=== PATIENT | female | born 1995 | race Caucasian/White ===

== ENCOUNTER 2021-02-13 17:07 | Emergency (ER) | payer OTHER ==
[~2021-02-13] VITALS: Ht 160 cm; Wt 94.0 kg
[2021-02-13] MEDS ORDERED: KETOROLAC 15 MG/ML VIAL. IVP ONE (18:45)
--- NOTE | 2021-02-13 18:45 | PHYS DOC ---
Past History Past Medical History: Anemia (MORGAN CARRERA APRN) Past Surgical History: No Surgical History (MORGAN CARRERA APRN) Alcohol Use: Occasionally (MORGAN CARRERA APRN) General Adult EDM: Chief Complaint: VAGINAL BLEEDING HPI: HPI: Patient is a 26-year-old female presents with vaginal bleeding and clotting during her period. Patient states that she has been on her period for 3 days and today she started having clotting and abdominal pain. Patient states that she was going through 1 pad every couple hours at home. Patient was also reporting some dizziness earlier today. Patient denies any dizziness, shortness of breath, chest pain at this time. Patient has a history of anemia. (MORGAN CARRERA APRN) Review of Systems: Review of Systems: Constitutional: Denies fever or chills Eyes: Denies change in visual acuity HENT: Denies nasal congestion or sore throat Respiratory: Denies cough or shortness of breath Cardiovascular: Denies chest pain or edema GI: Reports lower abdominal pain, denies nausea, vomiting, bloody stools or diarrhea /Vaginal: Denies dysuria . Reports vaginal bleeding and clots Musculoskeletal: Denies back pain or joint pain Integument: Denies rash Neurologic: Denies headache, focal weakness or sensory changes Endocrine: Denies polyuria or polydipsia Lymphatic: Denies swollen glands Psychiatric: Denies depression or anxiety (MORGAN CARRERA APRN) Current Medications: Current Meds: Current Medications Medications (Trade) Dose Ordered Sig/Tyree Start Time Stop Time Status Last Admin Dose Admin Ketorolac Tromethamine (Toradol 15mg Vial) 15 mg 1X ONCE 02/13/21 18:45 02/13/21 18:46 UNV (MORGAN CARRERA APRN) Physical Exam: PE: Constitutional: Well developed, well nourished, no acute distress, non-toxic appearance. [] HENT: Normocephalic, atraumatic, bilateral external ears normal, oropharynx moist, no oral exudates, nose normal. [] Eyes: PERRLA, EOMI, conjunctiva normal, no discharge. [] Neck: Normal range of motion, no tenderness, supple, no stridor. [] Cardiovascular:Heart rate regular rhythm, no murmur [] Lungs & Thorax: Bilateral breath sounds clear to auscultation [] Abdomen: Bowel sounds normal, soft, lower abdomen tenderness Skin: Warm, dry, no erythema, no rash. [] Back: No tenderness, no CVA tenderness. [] Extremities: No tenderness, no cyanosis, no clubbing, ROM intact, no edema. [] Neurologic: Alert and oriented X 3, normal motor function, normal sensory function Psychologic: Affect normal, judgement normal, mood normal. [] (MORGAN CARRERA APRN) Current Patient Data: Vital Signs: Vital Signs Date Time Temp Pulse Resp B/P (MAP) Pulse Ox O2 Delivery O2 Flow Rate FiO2 02/13/21 17:21 98.3 86 16 135/79 (97) 97 Room Air (MORGAN CARRERA APRN) EKG: EKG: [] (MORGAN CARRERA APRN) Radiology/Procedures: Radiology/Procedures: []Study: CT abdomen/pelvis without intravenous contrast Indication: Left lower quadrant pain. Comparison: None. Technique: Helical CT imaging performed of the abdomen and pelvis without the use of intravenous contrast. Sagittal and coronal reformats were obtained. One or more of the following individualized dose reduction techniques were utilized for this examination: 1. Automated exposure control 2. Adjustment of the mA and/or kV according to patient size 3. Use of iterative reconstruction technique. Findings: Inherently limited evaluation without intravenous contrast. Chest: Cystic structure at the anterior/lower aspect of the mediastinum to the right of midline with simple internal density. This measures 3.1 x 1.7 x 1.8 cm. Liver: No focal parenchymal abnormality. Gallbladder/Biliary Tree: Unremarkable. Pancreas: Unremarkable. Spleen: Normal in size. Adrenal Glands: No adrenal gland mass. Kidneys/Ureters/Bladder: Symmetric renal size and attenuation. No stone or hydronephrosis. Within normal limits urinary bladder wall given incomplete distention. No pericystic inflammation. Reproductive Organs: Unremarkable uterus and ovaries. Colon: Within normal limits. Small amount of well-formed stool. Appendix: Well visualized and normal. Small Bowel: No findings of obstruction. Stomach: Unremarkable. Vasculature: Unremarkable. Lymph Nodes: Unremarkable. Peritoneum and Body Wall: No free fluid or pneumoperitoneum. Bones: Transitional lumbosacral anatomy. Mild posterior disc bulge with a central protrusion at L4-L5 without evidence for more than mild central canal stenosis. Transitional lumbosacral anatomy. Miscellaneous: None. Impression: 1. No acute abnormality seen throughout the abdomen or pelvis. 2. Incidental anterior mediastinal cystic focus measuring 3.1 x 1.7 x 1.8 cm. This measures near simple density. Consensus recommendations for incidental/asymptomatic anterior mediastinal cysts require no dedicated follow- up. Electronically signed by: DARIELA HERNANDEZ MD (02/13/2021 7:21 PM) [facility] (MORGAN CARRERA APRN) Heart Score: C/O Chest Pain: No Risk Factors: Risk Factors: DM, Current or recent (<one month) smoker, HTN, HLP, family history of CAD, obesity. Risk Scores: Score 0 - 3: 2.5% MACE over next 6 weeks - Discharge Home Score 4 - 6: 20.3% MACE over next 6 weeks - Admit for Clinical Observation Score 7 - 10: 72.7% MACE over next 6 weeks - Early Invasive Strategies (MORGAN CARRERA APRN) Course & Med Decision Making: Course & Med Decision Making Pertinent Labs and Imaging studies reviewed. (See chart for details) [] 19-year-old female presents with vaginal bleeding and clotting. Patient is currently on her menstrual cycle. Patient states that she was going through a pad every couple of hours. Patient did report she had some dizziness and khloe rtness of breath earlier in the day. Patient denies any symptoms at this time other than lower abdominal pain and an increase in bleeding. CT of abdomen ordered to rule out any acute abnormalities. Patient given Toradol for pain. All labs unremarkable. Hemoglobin 13.0. test is negative. Urine negative for infection. CT of abdomen pelvis was negative for acute abno rmalities. Patient is most likely experiencing a normal menstrual cycle but with an increase in clotting. Instructed patient to return to the emergency room if she was going through more than 1 pad an hour, had an increase in pain, dizziness, shortness of breath. Encouraged patient to make a follow-up appointment with her PCP. Patient is appreciative and okay with discharge plan. Patient is hemodynamically stable on discharge and able to ambulate on her own. (MORGAN CARRERA APRN) Dragon Disclaimer: Dragon Disclaimer: This electronic medical record was generated, in whole or in part, using a voice recognition dictation system. (MORGAN CARRERA APRN) Attending Co-Sign The patient was seen and interviewed as well as examined at the bedside. The chart was reviewed. The case was discussed. Agree with the plan of care. (SHAD VALENTINE DO) Departure Departure: Impression: Primary Impression: Menstrual cycle problem Disposition: HOME / SELF CARE / HOMELESS Condition: STABLE Referrals: CANDICE MAURICIO MD (PCP) Additional Instructions: You were seen in the emergency room for an increase and bleeding and clotting during your menstrual cycle. All of your labs were unremarkable. The CT of your abdomen and pelvis was negative for any acute abnormalities. Please make an appointment with your PCP for a follow-up appointment. Please return emergency room with worsening symptoms or concerns. Something to watch for would be. i increase in bleeding, going through a pad an hour due to bleeding. Increase in abdominal pain, dizziness, shortness of breath. EMERGENCY DEPARTMENT GENERAL DISCHARGE INSTRUCTIONS Thank you for coming to [facility] (ED) today and trusting us with you care. We trust that you had a positivie experience in our Emergency Department. If you wish to speak to the department management, you may call the director at [phone]. YOUR FOLLOW UP INSTRUCTIONS ARE FOLLOWS: 1. Do you have a private Doctor? If you do not have a private doctor, please ask for a resource list of physicians or clinics that may be able to assist you with follow up care. 2. The Emergency Physician has interpreted your x-rays. The X-Ray specialist will also review them. If there is a change in the findings, you will be notified in 48 hours when at all possible. 3. A lab test or culture has been done, your results will be reviewed and you will be notified if you need a change in treatment. ADDITIONAL INSTRUCTIONS AND INFORMATION: 1. Your care today has been supervised by a physician who is specially trained in emergency care. Many problems require more than one evaluation for a complete diagnosis and treatment. We recommend that you schedule your follow up appointment as recommended to ensure complete treatment of you illness or injury. If you are unable to obtain follow up care and continue to have a problem, or if your condition worsens, we recommend that you return to the ED. 2. We are not able to safely determine your condition over the phone nor are we able to give sound medical advice over the phone. For these safety reasons, if you call for medical advice we will ask you to come to the ED for further evaluation. 3. If you have any questions regarding these discharge instructions please call the ED at [phone]. SAFETY INFORMATION: In the interest of safety, wellness, and injury prevention; we encourage you to wear your sealbelt, if you smoke; quite smoking, and we encourage family to use a protective helmet for bicycling and other sporting events that present an increased risk for head injury. IF YOUR SYMPTOMS WORSEN OR NEW SYMPTOMS DEVELOP, OR YOU HAVE CONCERNS ABOUT YOUR CONDITION; OR IF YOUR CONDITION WORSENS WHILE YOU ARE WAITING FOR YOUR FOLLOW UP APPOINTMENT; EITHER CONTACT YOUR PRIMARY CARE DOCTOR, THE PHYSICIAN WHOSE NAME AND NUMBER YOU WERE GIVEN, OR RETURN TO THE ED IMMEDIATELY. MORGAN CARRERA APRN Feb 13, 2021 18:45 SHAD VALENTINE DO Feb 14, 2021 00:25
[2021-02-13 18:55] LABS: BILIRUBIN,URINE NEG (NEG); CLARITY,URINE CLEAR; COLOR,URINE YELLOW; GLUCOSE,URINE NEG (NEG); NITRITE,URINE NEG (NEG); UROBILINOGEN,URINE 0.2 mg/dL (0.2 mg/dL)
[2021-02-13 18:57] LABS: BACTERIA,URINE 0 /HPF (0-FEW); WBC,URINE 0 /HPF (0-4)
[2021-02-13 19:07] LABS: BASO % 0 % (0-3); EOS # 0.4 x10^3/uL (0.0-0.7); EOS % 4 % (0-3); HEMATOCRIT 39.5 % (36.0-47.0); LYMPH # 2.9 x10^3/uL (1.0-4.8); LYMPH % 32 % (24-48); MEAN CORPUSCULAR HEMOGLOBIN 29 pg (25-35); MEAN CORPUSCULAR HGB CONC 33 g/dL (31-37); MEAN CORPUSCULAR VOLUME 89 fL (79-100); MONO # 0.5 x10^3/uL (0.0-1.1); MONO % 6 % (0-9); NEUT # 5.4 x10^3uL (1.8-7.7); NEUT % 58 % (31-73); PLATELET COUNT 286 x10^3/uL (140-400); RED BLOOD COUNT 4.44 x10^6/uL (3.50-5.40); RED CELL DISTRIBUTION WIDTH 13.8 % (11.5-14.5); WHITE BLOOD COUNT 9.3 x10^3/uL (4.0-11.0)
[2021-02-13 19:13] LABS: U PREG PATIENT NEGATIVE (NEG)
[2021-02-13 19:20] LABS: CALCIUM 8.8 mg/dL (8.5-10.1); CREATININE 0.7 mg/dL (0.6-1.0); GFR 100.4; POTASSIUM 3.9 mmol/L (3.5-5.1)
--- NOTE | 2021-02-13 19:23 | RAD ---
Study: CT abdomen/pelvis without intravenous contrast Indication: Left lower quadrant pain. Comparison: None. Technique: Helical CT imaging performed of the abdomen and pelvis without the use of intravenous cont rast. Sagittal and coronal reformats were obtained. One or more of the following individualized dose reduction techniques were utilized for this examinat ion: 1. Automated exposure control 2. Adjustment of the mA and/or kV according to patient size 3. Use of iterative reconstruction technique. Findings: Inherently limited evaluation without intravenous contrast. Chest: Cystic structure at the anterior/lower aspect of the mediastinum to the right of midline with simple internal density. This measures 3.1 x 1.7 x 1.8 cm. Liver: No focal parenchymal abnormality. Gallbladder/Biliary Tree: Unremarkable. Pancreas: Unremarkable. Spleen: Normal in size. Adrenal Glands: No adrenal gland mass. Kidneys/Ureters/Bladder: Symmetric renal size and attenuation. No stone or hydronephrosis. Within nor mal limits urinary bladder wall given incomplete distention. No pericystic inflammation. Reproductive Organs: Unremarkable uterus and ovaries. Colon: Within normal limits. Small amount of well-formed stool. Appendix: Well visualized and normal. Small Bowel: No findings of obstruction. Stomach: Unremarkable. Vasculature: Unremarkable. Lymph Nodes: Unremarkable. Peritoneum and Body Wall: No free fluid or pneumoperitoneum. Bones: Transitional lumbosacral anatomy. Mild posterior disc bulge with a central protrusion at L4-L5 without evidence for more than mild central canal stenosis. Transitional lumbosacral anatomy. Miscellaneous: None. Impression: 1. No acute abnormality seen throughout the abdomen or pelvis. 2. Incidental anterior mediastinal cystic focus measuring 3.1 x 1.7 x 1.8 cm. This measures near sim ple density. Consensus recommendations for incidental/asymptomatic anterior mediastinal cysts require no dedicated follow-up. Electronically signed by: DARIELA HERNANDEZ MD (02/13/2021 7:21 PM) [email or web address]
[2021-02-13] MEDS ORDERED: KETOROLAC 15 MG/ML VIAL. ONE (19:27)
[2021-02-13] MEDS: KETOROLAC 15 MG/ML VIAL. IM ONE (19:30)
[2021-02-13 20:10] VITALS: BP 135/92
== END 2021-02-13 20:13 | disposition home or self-care (01) ==
LOC: ER 17:07
DX: N92.6 Irregular menstruation, unspecified (principal); R42 Dizziness and giddiness; R10.32 Left lower quadrant pain; Z86.2 Personal history of diseases of the blood and blood-forming organs and certain disorders involving the immune mechanism
CPT/HCPCS: 36415; 74176; 80048; 81001; 81025; 85025; 96372; 99284; J1885

== ENCOUNTER 2021-02-25 14:12 | Emergency (ER) | payer OTHER ==
[~2021-02-25] VITALS: Ht 160 cm; Wt 92.4 kg
[2021-02-25] MEDS ORDERED: ONDANSETRON ODT 4 MG TAB.RAPDIS PO ONE (14:45)
--- NOTE | 2021-02-25 14:58 | RAD ---
INDICATION: Reason: hit head, loc / Spl. Instructions: / History: COMPARISON: None. TECHNIQUE: Axial CT images obtained through the head without intravenous contrast. One or more of the following individualized dose reduction techniques were utilized for this examinat ion: 1. Automated exposure control; 2. Adjustment of the mA and/or kV according to patient size; 3 . Use of iterative reconstruction technique. FINDINGS: No intracranial hemorrhage. No midline shift. Basal cisterns patent. Ventricles and sulci are unremarkable. No acute osseous abnormality. Orbits and paranasal sinuses unremarkable. IMPRESSION: * No acute intracranial hemorrhage. Electronically signed by: Pepe Mclean MD (02/25/2021 2:55 PM) [id number]
--- NOTE | 2021-02-25 15:11 | PHYS DOC ---
Past History Past Medical History: Anemia Past Surgical History: No Surgical History Additional Smoking Information: 1/2 PACK Alcohol Use: Occasionally General Adult EDM: Chief Complaint: HEAD INJURY/TRAUMA HPI: HPI: Patient is a 26 female who presents with headache after hitting her head on a metal shelf at work. Patient states she went to go stand up and hit the back of her head. Patient reports loss of consciousness. Patient states since the incident occurred she has had nausea, headache with light sensitivity, dizziness. Patient denies neck pain or vomiting. Review of Systems: Review of Systems: Constitutional: Denies fever or chills Eyes: Reports blurry vision HENT: Denies nasal congestion or sore throat Respiratory: Denies cough or shortness of breath Cardiovascular: Denies chest pain or edema GI: Denies abdominal pain, nausea, vomiting, bloody stools or diarrhea : Denies dysuria and frequency Musculoskeletal: Denies back pain or joint pain Integument: Denies rash Neurologic: Reports headache and light sensitivity Endocrine: Denies polyuria or polydipsia Lymphatic: Denies swollen glands Psychiatric: Denies depression or anxiety Current Medications: Current Meds: Current Medications Medications (Trade) Dose Ordered Sig/Tyree Start Time Stop Time Status Last Admin Dose Admin Ondansetron HCl (Zofran Odt) 4 mg 1X ONCE 02/25/21 14:45 02/25/21 14:46 DC 02/25/21 14:41 4 MG Allergies: Allergies: Allergies Coded Allergies Type Severity Reaction Last Updated Verified bismuth subsalicylate Allergy Unknown 02/25/21 Yes Physical Exam: PE: Constitutional: Well developed, well nourished, no acute distress, non-toxic appearance. HENT: bilateral external ears normal, oropharynx moist, no oral exudates, nose normal. Eyes: PERRLA, EOMI, conjunctiva normal, no discharge. Neck: Normal range of motion, no tenderness Cardiovascular:Heart rate regular rhythm, no murmur Lungs & Thorax: Bilateral breath sounds clear to auscultation Abdomen: Bowel sounds normal, soft, no tenderness, no masses, no pulsatile masses. Skin: Warm, dry, no erythema, no rash. Back: No tenderness, no CVA tenderness. Extremities: No tenderness, ROM intact, no edema. Neurologic: Alert and oriented X 3, normal motor function, normal sensory function, no focal deficits noted. Psychologic: Affect normal, judgement normal, mood normal. Current Patient Data: Vital Signs: Vital Signs Date Time Temp Pulse Resp B/P (MAP) Pulse Ox O2 Delivery O2 Flow Rate FiO2 02/25/21 14:20 98.0 93 20 145/98 (114) 99 Room Air EKG: EKG: [] Radiology/Procedures: Radiology/Procedures: []INDICATION: Reason: hit head, loc / Spl. Instructions: / History: COMPARISON: None. TECHNIQUE: Axial CT images obtained through the head without intravenous contrast. One or more of the following individualized dose reduction techniques were utilized for this examination: 1. Automated exposure control; 2. Adjustment of the mA and/or kV according to patient size; 3. Use of iterative reconstruction technique. FINDINGS: No intracranial hemorrhage. No midline shift. Basal cisterns patent. Ventricles and sulci are unremarkable. No acute osseous abnormality. Orbits and paranasal sinuses unremarkable. IMPRESSION: * No acute intracranial hemorrhage. Heart Score: C/O Chest Pain: No Risk Factors: Risk Factors: DM, Current or recent (<one month) smoker, HTN, HLP, family history of CAD, obesity. Risk Scores: Score 0 - 3: 2.5% MACE over next 6 weeks - Discharge Home Score 4 - 6: 20.3% MACE over next 6 weeks - Admit for Clinical Observation Score 7 - 10: 72.7% MACE over next 6 weeks - Early Invasive Strategies Course & Med Decision Making: Course & Med Decision Making Pertinent Labs and Imaging studies reviewed. (See chart for details) [] 26-year-old female presents with headache after hitting her head on a metal shelf at work. Patient reports loss of consciousness. Patient said dizziness, nausea, blurry vision since the incidents occurred. Blurry vision improved prior to arrival to the emergency room. Denies neck pain. CT of head ordered to rule out intracranial bleeding or fractures. Patient given Zofran for nausea. CT of head was negative for intracranial bleeding or fracture. 25 mg of Benadryl given and 15 mg of Toradol IM. Given education on concussion and strict return precautions. Hemodynamically stable and able to ambulate on her own out of the emergency room. Patient is appreciative and okay with discharge plan. Dragon Disclaimer: Dragon Disclaimer: This electronic medical record was generated, in whole or in part, using a voice recognition dictation system. Departure Departure: Impression: Primary Impression: Concussion Qualified Codes: S06.0X1A - Concussion with loss of consciousness of 30 minutes or less, initial encounter Disposition: HOME / SELF CARE / HOMELESS Condition: STABLE Referrals: CANDICE MAURICIO MD (PCP) Patient Instructions: Concussion and Brain Injury Additional Instructions: You were seen in the emergency room for a headache, dizziness, nausea after jaime ing your head at work. The CT of your head was negative for any acute abnormalities. Your symptoms may last up to 1 week. Please follow-up with your PCP for further management. Return to emergency room if you have worsening symptoms or concerns. EMERGENCY DEPARTMENT GENERAL DISCHARGE INSTRUCTIONS Thank you for coming to [facility] (ED) today and trusting us with you care. We trust that you had a positivie experience in our Emergency Department. If you wish to speak to the department management, you may call the director at [phone]. YOUR FOLLOW UP INSTRUCTIONS ARE FOLLOWS: 1. Do you have a private Doctor? If you do not have a private doctor, please ask for a resource list of physicians or clinics that may be able to assist you with follow up care. 2. The Emergency Physician has interpreted your x-rays. The X-Ray specialist will also review them. If there is a change in the findings, you will be notified in 48 hours when at all possible. 3. A lab test or culture has been done, your results will be reviewed and you will be notified if you need a change in treatment. ADDITIONAL INSTRUCTIONS AND INFORMATION: 1. Your care today has been supervised by a physician who is specially trained in emergency care. Many problems require more than one evaluation for a complete diagnosis and treatment. We recommend that you schedule your follow up appointment as recommended to ensure complete treatment of you illness or injury. If you are unable to obtain follow up care and continue to have a problem, or if your condition worsens, we recommend that you return to the ED. 2. We are not able to safely determine your condition over the phone nor are we able to give sound medical advice over the phone. For these safety reasons, if you call for medical advice we will ask you to come to the ED for further evaluation. 3. If you have any questions regarding these discharge instructions please call the ED at [phone]. SAFETY INFORMATION: In the interest of safety, wellness, and injury prevention; we encourage you to wear your sealbelt, if you smoke; quite smoking, and we encourage family to use a protective helmet for bicycling and other sporting events that present an increased risk for head injury. IF YOUR SYMPTOMS WORSEN OR NEW SYMPTOMS DEVELOP, OR YOU HAVE CONCERNS ABOUT YOUR CONDITION; OR IF YOUR CONDITION WORSENS WHILE YOU ARE WAITING FOR YOUR FOLLOW UP APPOINTMENT; EITHER CONTACT YOUR PRIMARY CARE DOCTOR, THE PHYSICIAN WHOSE NAME AND NUMBER YOU WERE GIVEN, OR RETURN TO THE ED IMMEDIATELY. MORGAN CARRERA APRN Feb 25, 2021 15:11
[2021-02-25] MEDS ORDERED: diphenhydrAMINE HCL 25 MG CAPSULE PO ONE (15:30)
[2021-02-25] MEDS ORDERED: KETOROLAC 15 MG/ML VIAL. IM ONE (15:30)
[2021-02-25 15:40] VITALS: BP 136/84
--- NOTE | 2021-02-25 20:00 | EKG ---
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
== END 2021-02-25 15:40 | disposition home or self-care (01) ==
LOC: ER 14:12
DX: S06.0X9A Concussion with loss of consciousness of unspecified duration, initial encounter (principal); F17.200 Nicotine dependence, unspecified, uncomplicated; Z88.8 Allergy status to other drugs, medicaments and biological substances; Z86.2 Personal history of diseases of the blood and blood-forming organs and certain disorders involving the immune mechanism; W22.8XXA Striking against or struck by other objects, initial encounter; Y93.89 Activity, other specified; Y92.89 Other specified places as the place of occurrence of the external cause; Y99.8 Other external cause status
CPT/HCPCS: 70450; 93005; 96372; 99284; J1885; Q0162; Q0163